=== PATIENT | male | born 1960 | race Caucasian/White ===

== ENCOUNTER 2018-08-07 11:33 | Day surgery (SDC) | payer MEDICAID ==
[~2018-08-07] VITALS: Ht 167.6 cm; Wt 72.7 kg
[~2018-08-07 11:33] MED LIST: SODIUM CHLORIDE 0.9% 1,000 ML IV ONE
[2018-08-07] MEDS ORDERED: LIDOCAINE/PF 2% 5 ML VIAL IM ONE (11:34)
[2018-08-07] MEDS ORDERED: PROPOFOL 1% 20 ML VIAL IVP ONE (11:34)
[2018-08-07] MEDS ORDERED: SODIUM CHLORIDE 0.9% 1,000 ML IV ONE (12:11)
== END 2018-08-07 17:17 | disposition home or self-care (01) ==
LOC: SURGERY 11:33
PROVIDERS: ATTEND Internal Medicine Gastroenterology
DX: K57.30 Diverticulosis of large intestine without perforation or abscess without bleeding (principal); K52.89 Other specified noninfective gastroenteritis and colitis; K62.89 Other specified diseases of anus and rectum; K57.20 Diverticulitis of large intestine with perforation and abscess without bleeding; F17.210 Nicotine dependence, cigarettes, uncomplicated; F10.10 Alcohol abuse, uncomplicated; Z98.890 Other specified postprocedural states
CPT/HCPCS: 45380; 88305; 88313; C1769; J2704; J3490; J7030